=== PATIENT | male | born 1995 | race Caucasian/White ===

== ENCOUNTER → 2024-07-15 | Day surgery (SDC) | payer OTHER ==
[~2024-07-15] MED LIST: ACETAMINOPHEN 1000 MG/100 ML 100 ML IV ONE; DEXAMETHASONE SOD PHOS INJ 4 MG/ML SDV ONE; FENTANYL CITRATE/PF 100MCG/2 ML INJ ONE; FLONASE ALLERG9.9 ML INH; LANTUS 3ML100 UNITS/ SQ; LIDOCAINE HCL 2% LOCAL INJ 5 ML SDV VIAL INJ ONE; LISINOPRIL20 MG PO; LYUMJEV100 UNIT/1; MIDAZOLAM HCL 2 MG/2 ML VIAL ONE; MILK THISTLE175 M2; MODAFINIL200 MG PO; MONTELUKAST SOD10 MG PO; MULTI-VITAMIN1 EACH PO; ONDANSETRON HCL INJ 2MG/ML 2ML 2 MG/ML VIAL ONE; PHENYLEPHRINE HCL 1% 10 MG/ML VIAL ONE; PROPOFOL IV EMULSION 10 MG/ML 20 ML VIAL ONE; ROCURONIUM BROMIDE 1 ML IV ONE; SUGAMMADEX SODIUM 200 MG/2 ML VIAL IV ONE; VITAMIN D250 MCG; VITAMIN K240 MCG; [UNRECOGNIZED DRUG - OTHER]
[2024-07-15] MEDS: LACTATED RINGER'S 1,000 ML ONE (06:45)
[2024-07-15 11:00] VITALS: BP 135/87; PULSE 82; RESP 16; O2SAT 97
== END | disposition home or self-care (01) ==
LOC: OR 06:24 → EDBD 08:30
PROVIDERS: ATTEND Otolaryngology Otolaryngology/Facial Plastic Surgery
DX: J34.2 Deviated nasal septum (principal); J34.89 Other specified disorders of nose and nasal sinuses; G47.33 Obstructive sleep apnea (adult) (pediatric); I10 Essential (primary) hypertension; E11.9 Type 2 diabetes mellitus without complications; E66.01 Morbid (severe) obesity due to excess calories; K76.0 Fatty (change of) liver, not elsewhere classified; Z01.810 Encounter for preprocedural cardiovascular examination; Z79.4 Long term (current) use of insulin; Z79.899 Other long term (current) drug therapy; Z96.41 Presence of insulin pump (external) (internal)
CPT/HCPCS: 88300; 88304; 93005; J1100; J2003; J2250; J2371; J2405

== ENCOUNTER → 2025-04-28 | Day surgery (SDC) | payer OTHER ==
[~2025-04-28] MED LIST changes: +BERBERINE500 MG PO; +SEVOFLURANE INHAL SOLN 250 ML PEN BTL ONE; -VITAMIN D250 MCG; +VITAMIN D250 MCG PO; -VITAMIN K240 MCG; +VITAMIN K240 MCG PO
[2025-04-28] MEDS: LACTATED RINGER'S 1,000 ML ONE (06:28)
[2025-04-28] MEDS: ONDANSETRON HCL INJ 2MG/ML 2ML 2 MG/ML VIAL ONE (09:15)
[2025-04-28 09:40] VITALS: BP 120/75; PULSE 86; RESP 18; O2SAT 97
== END | disposition home or self-care (01) ==
LOC: OR 05:45
PROVIDERS: ATTEND Otolaryngology Otolaryngology/Facial Plastic Surgery
DX: J34.2 Deviated nasal septum (principal); J34.3 Hypertrophy of nasal turbinates; J34.89 Other specified disorders of nose and nasal sinuses; E10.9 Type 1 diabetes mellitus without complications; G47.33 Obstructive sleep apnea (adult) (pediatric); I10 Essential (primary) hypertension; E78.5 Hyperlipidemia, unspecified; K76.0 Fatty (change of) liver, not elsewhere classified; Z79.4 Long term (current) use of insulin; Z96.41 Presence of insulin pump (external) (internal); Z79.899 Other long term (current) drug therapy
CPT/HCPCS: 30140; 30520; 36415; 82948; 88304; 88311; 93005; J0131; J1100; J2003; J2250; J2371; J2405; J2704; J3010; J7121; 88300